=== PATIENT | male | born 1990 | race Caucasian/White ===

== ENCOUNTER 2019-08-10 16:59 | Emergency (ER) | payer BC ==
--- NOTE | 2019-08-10 17:29 | EDM.PDOC ---
ED HPI GENERAL MEDICAL PROBLEM - General Chief Complaint: General Stated Complaint: DRUG WITHDRAWAL Time Seen by Provider: 08/10/19 17:24 Source of Information: Reports: Patient History Limitations: Reports: Other (no old records) - History of Present Illness INITIAL COMMENTS - FREE TEXT/NARRATIVE: 28 yo male new in the area and not yet associated with a local provider called the [facility] today about 2 pm and asking to be seen to get back on Suboxone that he ran out of a couple days ago. They told him to go to the ER. He states he takes the 8/2 mg strength twice daily. Onset: Gradual Duration: Day(s): (out a couple days.), Getting Worse Location: Reports: Generalized Severity: Mild Improves with: Reports: Medication Worsens with: Reports: Other (abstinence) Context: Reports: Other (see HPI) Associated Symptoms: Reports: No Other Symptoms Treatments [employer]: Reports: Other (see below) (none) Headache Pain Score (Numeric/FACES): 7 - Related Data Allergies Allergy/AdvReac Type Severity Reaction Status Date / Time No Known Allergies Allergy Verified 08/10/19 17:11 Home Meds: Home Meds Buprenorphine HCl/Naloxone HCl [Suboxone 4 mg-1 mg Sl Film] 2 film PO BID [History] Past Medical History Musculoskeletal History: Reports: Fracture Psychiatric History: Reports: Addiction - Past Surgical History GI Surgical History: Reports: Appendectomy Musculoskeletal Surgical History: Reports: Other (See Below) Other Musculoskeletal Surgeries/Procedures:: patient had fx repair of left leg, and ankle. Social & Family History - Tobacco Use Smoking Status *Q: Heavy Tobacco Smoker Years of Tobacco use: 12 Packs/Tins Daily: 1 - Recreational Drug Use Recreational Drug Use: Yes Recreational Drug Type: Reports: Heroin, Other (see below) Other Recreational Drug Type: pills. ED ROS GENERAL - Review of Systems Review Of Systems: Comprehensive ROS is negative, except as noted in HPI. Constitutional: Reports: Other (mild withdrawal sx's currently.) ED EXAM, GENERAL - Physical Exam Exam: See Below Exam Limited By: No Limitations General Appearance: Alert, WD/WN, No Apparent Distress Eye Exam: Bilateral Eye: Normal Inspection Ears: Hearing Grossly Normal Ear Exam: Bilateral Ear: Auricle Normal, Canal Normal Nose: Normal Inspection, No Blood Throat/Mouth: Normal Inspection, Normal Voice, No Airway Compromise Head: Atraumatic, Normocephalic Neck: Normal Inspection Respiratory/Chest: No Respiratory Distress, No Accessory Muscle Use Cardiovascular: Regular Rate, Rhythm Extremities: Normal Inspection Neurological: Alert, Oriented, CN II-XII Intact, Normal Cognition, No Motor/ Sensory Deficits Psychiatric: Normal Affect, Normal Mood Course - Vital Signs Last Recorded V/S: Last Vital Signs Temp 36.2 C 08/10/19 17:18 Pulse 104 H 08/10/19 17:18 Resp 16 08/10/19 17:18 BP 169/96 H 08/10/19 17:18 Pulse Ox 99 08/10/19 17:18 Departure - Departure Time of Disposition: 17:28 Disposition: Home, Self-Care 01 Condition: Good Clinical Impression: Opiate withdrawal - Discharge Information *PRESCRIPTION DRUG MONITORING PROGRAM REVIEWED*: No *COPY OF PRESCRIPTION DRUG MONITORING REPORT IN PATIENT [facility]: No Referrals: PCP,None [Primary Care Provider] - Additional Instructions: Start Suboxone and use every 12 hrs. Call the clinic for an appt. Sepsis Event Note - Evaluation Sepsis Screening Result: No Definite Risk - Focused Exam Vital Signs: Vital Signs Temp Pulse Resp BP Pulse Ox 08/10/19 17:18 36.2 C 104 H 16 169/96 H 99 08/10/19 17:10 36.2 C 104 H 16 169/96 H 99 Date Exam was Performed: 08/10/19 Time Exam was Performed: 17:24
== END 2019-08-10 17:33 | disposition home or self-care (01) ==
LOC: JP.ED 16:59
DX: F11.23 Opioid dependence with withdrawal (principal); F17.210 Nicotine dependence, cigarettes, uncomplicated
CPT/HCPCS: 99283